=== PATIENT | male | born 1980 | race Hispanic/Latino ===

== ENCOUNTER 2017-08-05 12:21 | Emergency (ER) | payer OTHER ==
[2017-08-05 12:45] VITALS: BP 134/80; PULSE 78; RESP 17; TEMP 98.6; O2SAT 100
--- NOTE | 2017-08-05 13:53 | C.PDOC ---
History Of Present Illness 37 yo male c.o left shoulder pain for 1 week. PT notes that he slipped on the stairs and tried to hold on the banister pulling his left shoulder. Notes he did not fall on to the shoulder or have any direct trauma to it. Pain aggravated by movement. Denies change in sensation, chest pain, sob, radiation of pain or any other symptoms. Left hand dominant. Time Seen by Provider: 08/05/17 13:07 Chief Complaint (Nursing): Upper Extremity Problem/Injury History Per: Patient History/Exam Limitations: no limitations Onset/Duration Of Symptoms: Days Current Symptoms Are (Timing): Still Present Past Medical History Vital Signs: Last Vital Signs Temp 98.6 F 08/05/17 12:44 Pulse 78 08/05/17 12:44 Resp 17 08/05/17 12:44 BP 134/80 08/05/17 12:44 Pulse Ox 100 08/05/17 12:44 Family History: States: Unknown Family Hx - Social History Hx Alcohol Use: No Hx Substance Use: No - Immunization History Hx Tetanus Toxoid Vaccination: Yes Hx Influenza Vaccination: No Hx Pneumococcal Vaccination: No Review Of Systems Except As Marked, All Systems Reviewed And Found Negative. Musculoskeletal: Positive for: Shoulder Pain (L) Physical Exam - Physical Exam Appears: Well, Non-toxic, No Acute Distress Skin: Normal Color, Warm, Dry Head: Atraumatic, Normacephalic Eye(s): bilateral: Normal Inspection, EOMI Nose: Normal Oral Mucosa: Moist Neck: Normal, Normal ROM, Supple Chest: Symmetrical Cardiovascular: Rhythm Regular Respiratory: Normal Breath Sounds Back: Normal Inspection Extremity: Normal ROM (FROM with pain passed 90 degrees), Tenderness ((+) left trapezius), Capillary Refill (< 2 sec), No Swelling Extremity: Bilateral: Normal Color And Temperature, Normal ROM Pulses: Left Radial: Normal, Right Radial: Normal Neurological/Psych: Oriented x3, Normal Speech, Normal Motor, Normal Sensation ED Course And Treatment O2 Sat by Pulse Oximetry: 100 - Other Rad Shoulder XR X-Ray: Interpreted by Me, Viewed By Me Interpretation: no fx or dislocation Progress Note: Pt was instructed to follow up with ortho in 1-2 days for further evaluation or return to ER if symtpoms persist or worsen. Disposition - Disposition Referrals: Hipolito Vaughan MD [Staff Provider] - Disposition: HOME/ ROUTINE Disposition Time: 14:02 Condition: STABLE Additional Instructions: Follow up with your primary medical doctor or clinic in 2-5 days for further evaluation. Take medications as prescribed. Return to the emergency department at any time if symptoms persist or worsen. Prescriptions: Cyclobenzaprine [Cyclobenzaprine HCl] 10 mg PO TID #20 tab Ketorolac Tromethamine [Toradol] 10 mg PO Q6 PRN #20 tab PRN Reason: Pain, Moderate (4-7) Instructions: Shoulder Sprain (ED) - Clinical Impression Clinical Impression: Shoulder strain
--- NOTE | 2017-08-05 14:24 | RAD ---
PROCEDURE: Radiographs of the Left Shoulder HISTORY: pain COMPARISON: None available. FINDINGS: BONES: No acute displaced fracture. The distal clavicle and underlying ribs appear intact. JOINTS: No acute dislocation. SOFT TISSUES: Soft tissues appear unremarkable. No evidence of radiopaque foreign body. IMPRESSION: No acute displaced fracture or dislocation evident. If symptoms persist or if there is continued clinical concern, x-ray follow-up in 7-10 days should be considered.
== END 2017-08-05 14:13 | disposition home or self-care (01) ==
LOC: C.ER 12:21
DX: S46.912A Strain of unspecified muscle, fascia and tendon at shoulder and upper arm level, left arm, initial encounter (principal); W18.40XA Slipping, tripping and stumbling without falling, unspecified, initial encounter